=== PATIENT | female | born 1930 | race Caucasian/White ===

== ENCOUNTER 2018-05-21 15:03 | Inpatient (IN) | payer MEDICARE, OTHER ==
[2018-05-21] VITALS (7 sets, daily range): BP systolic 166–202; BP diastolic 67–141; PULSE 62–66; RESP 17–18; Ht 157.5 cm; Wt 65.6 kg
[~2018-05-21] VITALS: Ht 157.5 cm; Wt 65.6 kg
[2018-05-21] MEDS ORDERED: hydrALAzine 20 MG INJ IV ONE ×2 (15:30→18:00)
[2018-05-21] MEDS ORDERED: ASPI81TA52 PO (15:57)
[2018-05-21] MEDS ORDERED: CARV25TA79 PO (15:58)
[2018-05-21] MEDS ORDERED: CLON-379 PO (15:59)
[2018-05-21] MEDS ORDERED: LEVO100T82 PO (16:00)
[2018-05-21] MEDS ORDERED: CLON0.5T14 PO (16:09)
[2018-05-21] MEDS ORDERED: ATOR10TA65 PO (16:10)
--- NOTE | 2018-05-21 16:11 | ERD ---
ER Documentation Chief Complaint Chief Complaint GENERALIZED WEAKNESS. HYPERTENSIVE HPI This is an 87-year-old female with a past medical history of hypertension and hypothyroidism. The patient indicates that roughly 4 hours prior to arrival she developed a sudden onset of left-sided weakness of her upper extremity. The patient indicated she had been sitting at a table eating lunch when the weakness began. This lasted for 1 hour. The patient stated however she was able to ambulate during this time without any difficulty. The patient denied a headache. She no changes in vision. She stated her symptoms are completely res olved. However at 2:30 PM roughly an hour prior to arrival she developed a heavy sensation again in her left upper extremity and slurred speech. She stated this lasted for roughly 10 minutes and then spontaneously resolved. She stated she feels no symptoms at all at this time but was brought to the emergency department for further evaluation by her family. She denies any frequency urgency or dysuria. No recent hospitalizations. No shortness of breath at rest or exertion. No chest pain or pressure. ROS All systems reviewed and are negative except as per history of present illness. Medications Home Meds Reported Medications Atorvastatin Calcium (Atorvastatin Calcium) 10 Mg Tablet, 10 MG PO QHS, #30 TAB 05/21/18 Clonazepam* (Clonazepam*) 0.5 Mg Tablet, 0.5 MG PO QHS PRN for SLEEP, TAB 05/21/18 Levothyroxine Sodium* (Levoxyl*) 100 Mcg Tablet, 100 MCG PO BEFORE BREAKFAST, #30 TAB 05/21/18 Clonidine Hcl* (Clonidine Hcl*) 0.1 Mg Tab, 0.05 MG PO QHS, TAB 05/21/18 Carvedilol* (Carvedilol*) 25 Mg Tablet, 25 MG PO BID, #60 TAB 05/21/18 Aspirin (Low Dose Aspirin) 81 Mg Tablet.dr, 81 MG PO DAILY, #30 TAB 05/21/18 Allergies Allergies: Coded Allergies: No Known Allergy (Verified , 05/21/18) PMhx/Soc Hx Cardiac Disorders: Yes (HTN) Hx Alcohol Use: No Hx Substance Use: No Hx Tobacco Use: No Smoking Status: Never smoker Physical Exam Vitals Vital Signs Date Temp Pulse Resp B/P (MAP) Pulse Ox O2 O2 Flow FiO2 Time Delivery Rate 05/21/18 52 25 161/39 99 Room Air 16:37 (79) 05/21/18 48 21 180/48 96 Room Air 15:46 (92) 05/21/18 97.9 54 16 225/69 94 15:08 (120) Physical Exam Constitutional:Well-developed. Well-nourished. HEENT:Normocephalic. Atraumatic.Pupils were equal round reactive to light. Moist mucous membranes.No tonsillar exudates. Neck: No nuchal rigidity. No lymphadenopathy. No posterior cervical spine tenderness or step-offs. Respiratory: Not using accessory muscles of respiration.Lungs were clear to auscultation bilaterally. No rhonchi. No rales. No wheezing. Cardiovascular: Regular rate regular rhythm.No murmurs. No rubs were appreciated.S1, S2 normal. Distal pulses are palpable 2+ bilaterally. GI: Abdomen was soft. Nontender. Non Distended. No pulsatile abdominal masses or bruits. No rebound. No guarding. Bowel sounds were present and normal. Muscle skeletal: Full range of motion of both the upper and lower extremities bilaterally.Normal muscle tone.No assymetrical calf tenderness or swelling. Skin: No petechia, no purpura. No lesions on the palms or the soles of the feet. No maculopapular rash. NEURO: Patient was alert, awake, orientated x3.No facial droop. Gait observed and normal with no ataxia.Speech had regular rate and rhythm. No focal neurological deficits. No pronator drift. NIH scale 1. Muscular strength 4-5 at the left upper extremity. 5 out of 5 in the bilateral lower extremities. Romberg sign negative. Result Diagram: 05/21/18 1538 05/21/18 1538 Results 24 hrs Laboratory Tests Test 05/21/18 15:38 White Blood Count 6.1 10^3/ul Red Blood Count 3.80 10^6/ul Hemoglobin 11.8 g/dl Hematocrit 36.2 % Mean Corpuscular Volume 95.3 fl Mean Corpuscular Hemoglobin 31.1 pg Mean Corpuscular Hemoglobin Concent 32.6 g/dl Red Cell Distribution Width 13.6 % Platelet Count 105 10^3/UL Mean Platelet Volume 11.9 fl Immature Granulocytes % 0.300 % Neutrophils % 57.1 % Lymphocytes % 26.9 % Monocytes % 11.4 % Eosinophils % 3.3 % Basophils % 1.0 % Nucleated Red Blood Cells % 0.0 /100WBC Immature Granulocytes # 0.020 10^3/ul Neutrophils # 3.5 10^3/ul Lymphocytes # 1.7 10^3/ul Monocytes # 0.7 10^3/ul Eosinophils # 0.2 10^3/ul Basophils # 0.1 10^3/ul Nucleated Red Blood Cells # 0.0 10^3/ul Prothrombin Time 12.6 Sec Prothrombin Time Ratio 1.0 INR International Normalized Ratio 0.93 Activated Partial Thromboplast Time 26.5 Sec Sodium Level 141 mmol/L Potassium Level 4.9 mmol/L Chloride Level 107 mmol/L Carbon Dioxide Level 25 mmol/L Anion Gap 9 Blood Urea Nitrogen 32 mg/dl Creatinine 0.99 mg/dl Est Glomerular Filtrat Rate mL/min mL/min Glucose Level 121 mg/dl Calcium Level 9.0 mg/dl Total Bilirubin 0.4 mg/dl Direct Bilirubin 0.00 mg/dl Indirect Bilirubin 0.4 mg/dl Aspartate Amino Transf (AST/SGOT) 25 IU/L Alanine Aminotransferase (ALT/SGPT) 15 IU/L Alkaline Phosphatase 86 IU/L Creatine Kinase 91 IU/L Creatine Kinase Index 0.7 Creatinine Kinase MB (Mass) 0.61 ng/ml Troponin I < 0.012 ng/ml B-Type Natriuretic Peptide 870 PG/ML Total Protein 7.7 g/dl Albumin 4.0 g/dl Globulin 3.70 g/dl Albumin/Globulin Ratio 1.08 Free Thyroxine Index 3.20 ug/ml Thyroxine (T4) 9.5 ug/dl Triiodothyronine (T3) Uptake 33.7 % Current Medications Medications Dose Sig/Andrea Start Time Status Last (Trade) Ordered Route PRN Stop Time Admin Dose Reason Admin Hydralazine 10 mg ONCE ONCE 05/21/18 DC 05/21/18 HCl IV 15:30 16:21 (Apresoline) 05/21/18 15:31 Ondansetron 4 mg ER BRIDGE 05/21/18 HCl (Zofran PRN IV 17:30 Inj) NAUSEA/VOMITI 05/22/18 17:29 NG 650 mg ER BRIDGE 05/21/18 Acetaminophen PRN PO 17:30 (Tylenol .MILD PAIN 05/22/18 17:29 Tab) 1-3 OR TEMP Aspirin 81 mg ONCE ONCE 05/21/18 (Aspirin) PO 18:00 05/21/18 18:01 Hydralazine 10 mg ONCE ONCE 05/21/18 HCl IV 18:00 (Apresoline) 05/21/18 18:01 Procedures/MDM This is an 87-year-old female that presented to the emergency department with strokelike symptoms. However code stroke was not called as the patient's symptoms had completely resolved. This was more concerning for TIA. The patient had a CT scan that showed no intracerebral hemorrhage mass-effect or midline shift. There is no severe electrolyte abnormalities. 12 Lead EKG tracing ordered and reviewed by myself showed: Sinus bradycardia 49 bpm and no arrhythmia. KS interval normal. QRS duration widened at 136 ms with an RSR prime pattern in lead V1 V2 consistent with right bundle branch block No ST segment elevation No ST segment depression. No changes consistent with acute ischemia. I obtained a 1 view chest radiograph reviewed by myself the radiologist indicate the followin. Cardiomegaly and atherosclerosis. 2. Mild atelectasis at the lung bases. 3. Otherwise unremarkable chest radiograph. This patient also presented to the emergency department with severely elevated blood pressure. My differential diagnosis included but was not limited to conditions that could end-organ damage such as acute coronary syndrome, acute pulmonary edema, aortic dissection, subarachnoid hemorrhage, intracerebral hemorrhage, cerebral infarction, withdrawal syndromes from beta blockers, or states of catecholamine excess such as pheochromocytoma or drug intoxication. The patient had uncontrolled hypertensive with end-organ damage to suggest hypertensive emergency. The treatment goal was immediate reduction of the mean arterial blood pressure. This was done in a controlled, graded manor, using improvement of the patient's condition as a guide. The patient's blood pressure reduction did not exceed more then a 20-25 percent reduction within the first 30 to 60 minutes. The patient was put on a monitoring tech, continuous pulse oximetry, and IV access was established by nursing staff. The antihypertensive agent used was hydralazine. CT scan of the head reviewed by myself the radiologist showed no intracerebral hemorrhage mass-effect or midline shift. The patient no severe electrolyte abnormalities. Her primary care physician is Dr. Fabian. The patient will be admitted for observation for a TIA. She did receive aspirin in the emergency department Critical Care: Time: 45 minutes Treatments/Evaluations: Close monitoring and treatment of unstable vital signs, cardiorespiratory, and neurologic status, while maintaining tight balance of fluid, respiratory, and cardiac interventions. Time does not include performing any of the above billable procedures. Departure Diagnosis: Primary Impression: TIA (transient ischemic attack) Additional Impression: Hypertensive emergency, no CHF Condition: Serious SU GRIMES MD May 21, 2018 16:09
[2018-05-21] MEDS ORDERED: ONDANSETRON 4 MG INJ IV PRN (17:30)
[2018-05-21] MEDS ORDERED: ACETAMINOPHEN 325 MG TAB PO PRN (17:30)
[2018-05-21] MEDS ORDERED: ASPIRIN 81 MG TAB PO ONE (18:00)
--- NOTE | 2018-05-21 18:28 | HP ---
Date/Time of Note Date/Time of Note DATE: 05/21/18 TIME: 18:26 Assessment/Plan VTE Prophylaxis SCD contraindicated: low risk/ambulating Pharmacological prophylaxis: LMWH Lines/Catheters IV Catheter Type (from Nrs): Saline Lock Assessment/Plan Problems: (1) TIA (transient ischemic attack) Status: Acute Comment: Admit for observation. Obtain head Mri, 2d-echo and carotid dopplers. Increase aspirin to 325mg qd. (2) Hypertension Status: Acute Comment: Patient was supposed to be on carvedilol and clonidine twice a day until recently when she was told to reduce clonidine to 1/2 tab at night due to bradycardia. Will add calcium channel ava for correction bp control and use hydralazine for prn coverage for now. (3) Hypothyroidism Status: Chronic Comment: thyroid meds increased from 88mcg to 100mcg in February and tft's in March was normal. Recheck thyroid levels today was within limits. (4) Hypercholesteremia Status: Chronic Comment: Continue atorvastatin. (5) Anxiety Status: Chronic Comment: Continue clonazepam prn. Result Diagram: 05/21/18 1538 05/21/18 1538 Results 24hrs Laboratory Tests Test 05/21/18 15:38 White Blood Count 6.1 Red Blood Count 3.80 L Hemoglobin 11.8 L Hematocrit 36.2 L Mean Corpuscular Volume 95.3 Mean Corpuscular Hemoglobin 31.1 Mean Corpuscular Hemoglobin Concent 32.6 Red Cell Distribution Width 13.6 Platelet Count 105 L Mean Platelet Volume 11.9 H Immature Granulocytes % 0.300 Neutrophils % 57.1 Lymphocytes % 26.9 Monocytes % 11.4 H Eosinophils % 3.3 Basophils % 1.0 Nucleated Red Blood Cells % 0.0 Immature Granulocytes # 0.020 Neutrophils # 3.5 Lymphocytes # 1.7 Monocytes # 0.7 Eosinophils # 0.2 Basophils # 0.1 Nucleated Red Blood Cells # 0.0 Prothrombin Time 12.6 Prothrombin Time Ratio 1.0 INR International Normalized Ratio 0.93 Activated Partial Thromboplast Time 26.5 Sodium Level 141 Potassium Level 4.9 Chloride Level 107 Carbon Dioxide Level 25 Anion Gap 9 Blood Urea Nitrogen 32 H Creatinine 0.99 Est Glomerular Filtrat Rate mL/min Glucose Level 121 Calcium Level 9.0 Total Bilirubin 0.4 Direct Bilirubin 0.00 Indirect Bilirubin 0.4 Aspartate Amino Transf (AST/SGOT) 25 Alanine Aminotransferase (ALT/SGPT) 15 Alkaline Phosphatase 86 Creatine Kinase 91 Creatine Kinase Index 0.7 Creatinine Kinase MB (Mass) 0.61 Troponin I < 0.012 B-Type Natriuretic Peptide 870 H Total Protein 7.7 Albumin 4.0 Globulin 3.70 H Albumin/Globulin Ratio 1.08 Free Thyroxine Index 3.20 Thyroxine (T4) 9.5 Triiodothyronine (T3) Uptake 33.7 HPI/ROS Admit Date/Time Admit Date/Time Hx of Present Illness 87 year old with history of hypertension and remote history of ovarian and colon cancer presents with sudden onset left sided weakness that waxes and waned and resolved after about 10 minutes. Patient was brought to the ER by her where her systolic blood pressure was noted to be >200. Although her head CT scan was normal , patient is admitted to observation for her hypertensive crisis and to complete work up of her TIA. PMH/Family/Social Past Medical History Medical History: cancer (colon and ovarian cancer), diverticulitis, high cholesterol, hypertension, hypothyroid, other (osteoarthritis) Medications Current Medications Ondansetron HCl (Zofran Inj) 4 mg ER BRIDGE PRN IV NAUSEA/VOMITING; Start 05/21/18 at 17:30; Stop 05/22/18 at 17:29 Acetaminophen (Tylenol Tab) 650 mg ER BRIDGE PRN PO .MILD PAIN 1-3 OR TEMP; Start 05/21/18 at 17:30; Stop 05/22/18 at 17:29 Coded Allergies: No Known Allergy (Verified , 05/21/18) Past Surgical History Past Surgical Hx: bowel resection, other (ROSALIE with oophorectomy, left ankle surgery) Social History Alcohol Use: occasionally Smoking Status: Never smoker Drug Use: none Exam/Review of Systems Vital Signs Vitals Vital Signs Date Temp Pulse Resp B/P (MAP) Pulse Ox O2 O2 Flow FiO2 Time Delivery Rate 05/21/18 52 25 161/39 99 Room Air 16:37 (79) 05/21/18 97.9 15:08 Exam Constitutional: alert, oriented Psych: no complaints Head: normocephalic, atraumatic Eyes: nl conjunctiva ENMT: nl external ears & nose Neck: supple Respiratory: clear to auscultation, normal air movement Cardiovascular: regular rate and rhythm Gastrointestinal: soft, non-tender Musculoskeletal: nl extremities to inspection 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
[2018-05-21] MEDS ORDERED: ASPIRIN 325 MG TAB PO ONE (19:00)
[2018-05-21] MEDS: ATORVASTATIN 10 MG TAB PO SCH (21:28)
[2018-05-21] MEDS ORDERED: LEVALBUTEROL (NEB) 0.63 MG/3 ML AMP HHN PRN (22:30)
[2018-05-21] MEDS: clonAZEPAM 0.5 MG TAB PO PRN (23:23)
[2018-05-22] VITALS (12 sets, daily range): BP systolic 124–169; BP diastolic 57–82; PULSE 46–68; RESP 17–18
[2018-05-22] MEDS: LEVOTHYROXINE 100 MCG TAB PO SCH (06:52)
[2018-05-22] MEDS ORDERED: FUROSEMIDE 20 MG INJ IV ONE (08:00)
--- NOTE | 2018-05-22 08:31 | PN ---
DATE: 05/22/2018 SUBJECTIVE: The patient denies any weakness or any other neurologic deficits at this time. The patient feels she is at her baseline. OBJECTIVE: VITAL SIGNS: Temperature 98.0, pulse of 50 at its lowest 46, but regular, respirations 17, blood pressure 169/82, oxygen saturation 96% on 2 liter nasal cannula oxygen. GENERAL: Well-developed, well-nourished female in no acute distress, sitting up in bed. LUNGS: Clear to auscultation bilaterally. HEART: Regular rate and rhythm. ABDOMEN: Normoactive bowel sounds, soft, nontender. NEUROLOGIC: Nonfocal. LABORATORY DATA: Sodium 144, potassium 4.3, chloride 110, bicarbonate 23, BUN 35, creatinine 0.98, glucose 108. Brain mets peptide is 1580. Albumin 3.4. T4 of 9.5, T4 index of 3.2, hemoglobin 11.2, hematocrit 34.6. White blood cell count 6.2, platelets 100. Carotid duplex scan shows 50 to 69% stenosis in the right proximal cervical ICA and 50 to 69% stenosis in left proximal and distal cervical ICA. ASSESSMENT AND PLAN: 1. TIA. The patient is still awaiting echocardiogram and MRI of the brain. We will continue with aspirin. Continue blood pressure and telemetry monitoring. We will have neurology to see the patient as well to assist with workup and treatment. The patient is with carotid stenosis bilaterally. We will also have PT evaluation and bedside swallow as pt having coughing issues. 2. Hypertension. Continue with current medications and adjust as necessary. The patient is with mild bump in BNP. We will give IV Lasix x1. 3. Hypothyroidism. Continue with patient's medication. 4. Hyperlipidemia. Continue with patient's medication and diet. Dictated By: RORY HYATT MD SR/NTS Conf#: [id number] DID#: [id number] CC: RORY HYATT MD;*End* MTDD
[2018-05-22] MEDS ORDERED: AMLODIPINE 5 MG TAB PO SCH (09:00)
--- NOTE | 2018-05-22 12:43 | RADRPT ---
Echocardiogram Report Patient Name: Guilherme TERRYnt ID: [id number] : [id number] (87y 8m)Study Date: 05/22/2018 8:00:11 AM Gender: FAccession #: [id number] Tech: AngelaNancy Ho [facility] Location: 601 Ref.Physician: ED HARE Height(Cm): BSA: Weight(Kg): Quality: AdequateAccount #: Procedures: Echocardiographic Report: Transthoracic echocardiogram with complete 2D, M-Mode, and doppler examination. Indications: Hypertension, and Transient Ischemic Attack. Measurements: 2D/M Mode Doppler Measurement Value Normal Range Measurement Value Normal Range LVIDd 2D 3.3 [ 3.8 - 5.2 ] cm AV Mean Zenon 1.3 [ 70.0 - 90.0 ] cm/sec LVIDs 2D 2.5 [ 2.2 - 3.5 ] cm AV Mean PG 8.0 [ 2.0 - 4.0 ] mmHg LVPWd 2D 1.4 [ 0.6 - 0.9 ] cm AV VTI 46.6 cm IVSd 2D 1.5 [ 0.6 - 0.9 ] cm LVOT Mean Zenon 0.8 [ 60.0 - 80.0 ] cm/sec AoR Diam 2D 3.0 [ 2.3 - 3.1 ] cm LVOT Mean PG 3.0 [ 1.0 - 3.0 ] mmHg EDV 2D 45.4 [ 46.0 - 106.0 ] ml LVOT Peak Zenon 1.1 [ 70.0 - 110.0 ] cm/sec ESV 2D 22.1 [ 14.0 - 42.0 ] ml LVOT Peak PG 5.0 [ 2.0 - 6.0 ] mmHg EF 2D 51.3 [ 54.0 - 74.0 ] percent LVOT VTI 30.6 [ 20.0 - 30.0 ] cm LA Dimen 2D 4.0 [ 2.7 - 3.8 ] cm MV E Peak Zenon 0.7 [ 60.0 - 130.0 ] cm/sec MV A Peak Zenon 0.9 [ 100.0 - 120.0 ] cm/sec MV E/A 0.7 [ 0.8 - 1.5 ] ratio MV Decel Time 239 [ 104 - 258 ] msec Lat E` Zenon 0.1 [ 10.0 - 15.0 ] cm/sec Lateral E/E` 9.9 [ 1.0 - 2.0 ] ratio Med E` Zenon 0.1 cm/sec MV E/A 0.7 [ 0.8 - 1.5 ] ratio TR Peak Zenon 2.7 [ 100.0 - 280.0 ] cm/sec TR Peak PG 28.0 mmHg RVSP 31.0 [ 10.0 - 36.0 ] mmHg RA Pressure 3.0 mmHg Findings: Left Ventricle: Normal left ventricular systolic function. Normal left ventricular cavity size. Moderate concentric left ventricular hypertrophy. Ejection fraction is visually estimated at 65 %. Tissue Doppler/Mitral Doppler indices are consistent with impaired relaxation (Stage I diastolic dysfunction). Right Ventricle: Normal right ventricular size. Normal right ventricular systolic function. Left Atrium: There is mild enlargement of left atrium. Right Atrium: The right atrium is normal in size. Mitral Valve: Mitral valve leaflets appear mildly thickened. Mild mitral annular calcification. Trace mitral regurgitation. Aortic Valve: Aortic sclerosis without significant stenosis. Trace aortic valve regurgitation. Tricuspid Valve: Normal appearance of the tricuspid valve. Estimated peak PA systolic pressure 31 mmHg. There is trace tricuspid regurgitation. Pulmonic Valve: Normal pulmonic valve appearance. Pericardium: Normal pericardium with no significant pericardial effusion. Aorta: Normal aortic root. IVC: Normal size and normal respiratory collapse consistent with normal right atrial pressure. Conclusions: Normal left ventricular systolic function. Normal left ventricular cavity size. Moderate concentric left ventricular hypertrophy. Ejection fraction is visually estimated at 65 %. Tissue Doppler/Mitral Doppler indices are consistent with impaired relaxation (Stage I diastolic dysfunction). Normal right ventricular size. Normal right ventricular systolic function. There is mild enlargement of left atrium. The right atrium is normal in size. No significant valvular stenosis or regurgitation seen. Normal pericardium with no significant pericardial effusion. Electronically Signed By: Sy Boyd 2018-05-22 12:42:38 PDT
[2018-05-22] MEDS: hydrALAzine 20 MG INJ IV PRN ×2 (14:22→22:04)
[2018-05-22] MEDS: ATORVASTATIN 10 MG TAB PO SCH (21:45)
[2018-05-22] MEDS: AMLODIPINE 5 MG TAB PO SCH (21:49)
[2018-05-22] MEDS: clonAZEPAM 0.5 MG TAB PO PRN (22:41)
[2018-05-23] VITALS (12 sets, daily range): BP systolic 145–170; BP diastolic 59–85; PULSE 51–74; RESP 17–18
--- NOTE | 2018-05-23 02:15 | CONS ---
DATE OF ADMISSION: 05/22/2018 DATE OF CONSULTATION: 05/22/[address] Fabian for your kind referral for evaluation of stroke. HISTORY OF PRESENT ILLNESS: The patient is an 87-year-old lady who presented after transient left-si ded weakness which was present prior to admission for about 10 minutes, also had elevated blood press ure more than 200 on admission. Her symptoms has resolved. She has no complaints currently. She hutchinson d EKG which showed sinus rhythm. Echocardiogram shows ejection fraction of 65 with moderate LVH. Sh e had CAT scan of the brain followed by MRI of the brain, and MRI shows presence of acute or recent r ight paracentral pontine infarction. She had carotid ultrasound which shows moderate 50 to 69% steno sis in the bilateral proximal internal carotid artery. Antegrade flow in the left vertebral artery, right vertebral was not visualized. Chest x-ray improving interstitial edema. Labs shows hemoglobin 11, hematocrit 34, normal WBCs and platelets. BUN 35, creatinine 0.98. BNP of 1500. Rest of compr ehensive metabolic panel within normal limits. Troponins negative. TSH within normal limits. Kaylen l PT, PTT. ALLERGIES: NONE. SOCIAL HISTORY: No alcohol, tobacco, or drug use. FAMILY HISTORY: Noncontributory. HOME MEDICATIONS: 1. Atorvastatin. 2. Ultram. 3. Carvedilol. 4. Clonidine. 5. Aspirin 81 mg. 6. Clonazepam 0.5 at bedtime. 7. L-thyroxine. Currently she is on: 1. Amlodipine. 2. L-thyroxine. 3. Hydralazine. 4. Atorvastatin. 5. Ultram . 6. Clonazepam. 7. Catapres. PAST MEDICAL HISTORY: Included remote history of colon and ovarian cancer. PHYSICAL EXAMINATION: VITAL SIGNS: Today, 98.1 temperature, 62 pulse, 17 respirations, 130/60 blood pressure. GENERAL: Not in acute distress, lying in bed. HEENT: Normocephalic, atraumatic head. NECK: No carotid bruits. No thyromegaly. LUNGS: Clear to auscultation bilaterally. CARDIAC: Normal cardiac rhythm and sounds. ABDOMEN: Soft. EXTREMITIES: No cyanosis, clubbing or edema. NEUROLOGIC: She is awake, alert, and oriented x3 with fluent speech. Cranial nerve examination show s intact visual summers bilaterally. Pupils reactive from 3 to 2 mm bilaterally. Extraocular movemen ts intact without nystagmus. Symmetrical face. Preserved facial strength and sensation. Tongue is in midline. Palate elevates symmetrically. Motor strength examination preserved in all extremities. Normal bulk, tone, and strength. Sensory examination intact to light touch and pain. Deep tendon reflexes 2+ upper extremities and knees, 1+ ankle jerks. Equivocal response to plantar stimulation b ilaterally. Coordination preserved on [id number] testing. No dysmetria or tremor. Gait was n ot assessed. According to the patient, 2 days ago she was ambulating with a walker because physical therapist recommended her to do so. Today she was ambulating to the restroom holding on to her husba nd's arm. 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 Usually, it is o carl to allow elevated blood pressure in first 1 or 2 days after acute stroke and then gradually obtai n control. Keep her euglycemic. Given that she has stroke on aspirin, I will change aspirin to Plav ix, and also I will increase her Lipitor 80 mg at bedtime. Continue physical therapy evaluation. Fo mohinderw their suggestion on further treatment. Thank you very much for this interesting consultation. Dictated By: DELORES CORTEZ/YUDELKA Conf#: [id number] DID#: [id number] CC: RORY FABIAN MD;*EndCC*
[2018-05-23] MEDS: ACETAMINOPHEN 325 MG TAB PO PRN (04:04)
[2018-05-23] MEDS: LEVOTHYROXINE 100 MCG TAB PO SCH (06:20)
[2018-05-23] MEDS ORDERED: FUROSEMIDE 20 MG INJ IV ONE (08:00)
[2018-05-23] MEDS: CLOPIDOGREL 75 MG TAB PO SCH (08:13)
[2018-05-23] MEDS: AMLODIPINE 5 MG TAB PO SCH ×2 (08:14→21:09)
--- NOTE | 2018-05-23 08:39 | PN ---
DATE: 05/23/2018 SUBJECTIVE: The patient is feeling a little bit better, still with intermittent cough. The patient complained of fever last night. OBJECTIVE: VITAL SIGNS: T-max 100.9, now 98.3, pulse 55 with ectopy, respiratory rate 18, blood pressure 155/67 , oxygen saturation 92% on room air. GENERAL: Well-developed, well-nourished female in no acute distress, sitting up in bed. LUNGS: Bibasilar crackles with scant end-expiratory wheeze. HEART: Regular with ectopy with bigeminy type pattern. ABDOMEN: Soft, nontender, mild obesity. EXTREMITIES: No cyanosis, clubbing or edema. NEUROLOGIC: Nonfocal. LABORATORY DATA: Sodium 141, potassium 4.4, chloride 111, bicarbonate 23, BUN of 34, creatinine 1.16 , glucose 102, magnesium 2.2. Brain natriuretic peptide 1990, triglycerides 175, cholesterol 118, LD L 49, HDL of 34. 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 IMPRESSION AND PLAN: 1. Acute cerebrovascular accident. The patient is status post acute cerebrovascular accident and co ntinues to improve neurologically. Appreciate Dr. Maldonado's input into this case. MR angiogra ms have been ordered of the brain and carotid for further evaluation. This patient is upwards of 69% stenosis of the carotid arteries. The patient now on Plavix as patient had a stroke on aspirin. We will continue with monitoring pressure, telemetry and controlling risk factors. 2. Hyperlipidemia. The patient now on 80 mg of Atorvastatin. Continue with diet as well. 3. Hypertension, stable with current medications and will adjust as necessary, but not overly correc t in the setting of her recent stroke. 4. Hyperthyroidism, stable. Continue with meds. 5. Fever, unclear etiology. We will do a urine culture as well as blood cultures x2. No need for a ntibiotics at this time. Dictated By: RORY HYATT MD SR/NTS Conf#: [id number] DID#: [id number] CC: RORY HYATT MD;*EndCC*
[2018-05-23] MEDS: hydrALAzine 20 MG INJ IV PRN ×2 (15:09→23:30)
[2018-05-23] MEDS ORDERED: ATORVASTATIN 80 MG TAB PO SCH (21:00)
[2018-05-23] MEDS: clonAZEPAM 0.5 MG TAB PO PRN (23:28)
[2018-05-24 00:04] VITALS: PULSE 65
[2018-05-24 00:44] VITALS: BP 150/65; PULSE 66; RESP 17
[2018-05-24 04:04] VITALS: PULSE 61
[2018-05-24 04:35] VITALS: BP 147/69; PULSE 65; RESP 17
[2018-05-24] MEDS: ACETAMINOPHEN 325 MG TAB PO PRN (05:07)
[2018-05-24] MEDS: LEVOTHYROXINE 100 MCG TAB PO SCH (06:19)
[2018-05-24 07:31] VITALS: BP 133/63; PULSE 59; RESP 22
[2018-05-24 08:00] VITALS: PULSE 61
[2018-05-24] MEDS: AMLODIPINE 5 MG TAB PO SCH (08:27)
[2018-05-24] MEDS: CLOPIDOGREL 75 MG TAB PO SCH (08:27)
--- NOTE | 2018-05-24 08:35 | PDOCDIS ---
Discharge Instructions DIAGNOSIS Discharge Diagnosis acute CVA; hypertensive emergency CONDITION [id number] Patient Condition: [id number] Good HOME CARE INSTRUCTIONS: [id number] Diet Instructions: [id number] Low Fat /Cholesterol ACTIVITY: [id number] Activity Restrictions: [id number] Slowly Increase Activity FOLLOW UP/APPOINTMENTS Follow-up Plan follow up with Dr. Fabian as scheduled 05/29 RORY FABIAN MD- May 24, 2018 08:35
[2018-05-24] MEDS ORDERED: CLOP75TA28 PO (08:38)
[2018-05-24] MEDS ORDERED: AMLO-145 PO (08:38)
[2018-05-24] MEDS ORDERED: ATOR-2 PO (08:38)
--- NOTE | 2018-05-24 09:14 | PN ---
DATE: 05/24/2018 SUBJECTIVE: The patient is feeling well without complaints. OBJECTIVE: VITAL SIGNS: Temperature 98.0, pulse 59, respirations 22, blood pressure 133/63, oxygen saturation 9 5% on room air. GENERAL: Well-developed, well-nourished female in no acute distress, sitting up in bed. CHEST: Clear to auscultation bilaterally. HEART: Regular rate and rhythm. NEUROLOGIC: Nonfocal. LABORATORY DATA: Sodium 143, potassium 4.4, chloride 108, bicarbonate 24, BUN of 32, creatinine 1.08 , blood sugar 103, magnesium 2.2. Brain natriuretic peptide of 1580. White blood cell count 7.7, he moglobin 11.8, hematocrit 36.6, platelets 107. 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 No evidence of high grade stenosis or focal occlusion of the anterior circulation. No evidence of high grade stenosis of the cervical vascular utilizing NASCET criteria. ASSESSMENT AND PLAN: 1. Acute cerebrovascular accident. The patient is with resolution in her neurologic findings, but b y MRI had acute CVA. The patient will be discharged home on high dosage Lipitor, blood pressure medi cations and Plavix. The patient is stable for discharge to home today. 2. Hypertension with hypertensive emergency, controlled and has resolved. The patient is better con trolled on the amlodipine. We will continue the amlodipine b.i.d. 5 mg and clonidine at bedtime. 3. Hyperlipidemia. We will continue with diet and atorvastatin 80 mg daily. 4. Hypothyroidism, stable. Continue with medications. 5. Acute diastolic heart failure, resolved. We will continue with blood pressure control but no nee d for diuretics at this time. 6. Discharge planning. The patient is stable for discharge to home The patient will follow up with Dr. Fabian on Tuesday as scheduled. Dictated By: RORY FABIAN MD SR/NTS Conf#: [id number] DID#: [id number]
== END 2018-05-24 10:20 | disposition home or self-care (01) | DRG 64 ==
LOC: E/R 15:03 → 6WM 18:06 → OBSVTOIN 05-22 09:12
PROVIDERS: ADMIT Internal Medicine; ATTEND Internal Medicine
DX: I63.9 Cerebral infarction, unspecified (principal); I50.31 Acute diastolic (congestive) heart failure; I16.1 Hypertensive emergency; I11.0 Hypertensive heart disease with heart failure; E03.9 Hypothyroidism, unspecified; E78.5 Hyperlipidemia, unspecified; F41.9 Anxiety disorder, unspecified; Z79.82 Long term (current) use of aspirin; Z79.02 Long term (current) use of antithrombotics/antiplatelets; Z85.43 Personal history of malignant neoplasm of ovary; Z85.038 Personal history of other malignant neoplasm of large intestine; Z90.710 Acquired absence of both cervix and uterus
CPT/HCPCS: 70450; 70546; 70548; 70553; 71045; 80048; 80053; 80061; 82550; 82553; 83735; 83880; 84436; 84479; 84484; 85025; 85610; 85730; 87040; 87086; 92526; 92610; 93005; 93306; 93880; 94640; 96374; 97110; 97116; 97162; G0378; J0360; J1940